=== PATIENT | female | born 1945 | race Caucasian/White ===

== ENCOUNTER → 2018-03-30 | Outpatient (CLI) | payer OTHER ==
[~2018-03-30] MED LIST: ACETAMINOPHEN325 M1 PO; AMANTADINE 100100 MG PO; AMBEREN; ASPIRIN EC81 M1 PO; BUDEPRION SR100 MG PO; BUPROPION XL150 MG PO; CALCIUM 600 +1 EAC5; CIPROFLOXACIN500 M1; CIPROFLOXACIN500 M1 PO; CLONAZEPAM; CLONAZEPAM PO; COZAAR 50 MG TA50 M2 PO; DESYREL50 MG; DESYREL50 MG PO; DIOVAN HCT 1601 EACH PO; DIOVAN40 MG; DITROPAN XL15 MG PO; FISH OIL 1,0001 EAC5; FLOMAX; FLUZONE 2045 MCG/011; FOSAMAX 70 MG T70 M1; GEODON40 MG; GEODON60 MG PO; HYDROCODON-ACE1 EAC7; KLONOPIN PO; KLOR CON; KLOR-CON 1010 MEQ; KLOR-CON 1010 MEQ PO; MEDROLDOSEPACK PO; METAMUCIL0.52 GM PO; MULTIVITAMINS PO; NEXIUM40 MG PO; OMEPRAZOLE40 MG PO; PERCOCET 5-3251 EACH PO; PNEUMOVAX25 MCG/0.5; POTASSIUM20; SELENIUM100 MCG PO; SIMVASTATIN40 MG PO; STOOL SOFTENER1 EAC2 PO; TOPAMAX; TOPAMAX 100 MG100 MG; TOPAMAX100 MG PO; TRAMADOL 50 MG50 MG; TRAMADOL 50 MG50 MG PO; TRAZODONE 150150 M1 PO; TRIAMTERENE PO; TRIAMTERENE-HC1 EAC1 PO; VESICARE10 M1 PO; VITAMIN C + RO500 MG; VITAMIN D1000 UNI1; VITAMIN D400 UNI1; WELLBUTRIN 100100 M1; ZIPRASIDONE HCL40 MG PO; ZYRTEC 10 MG TA10 M1 PO; ZYRTEC10 M2; ZYRTEC10 M2 PO; [UNRECOGNIZED DRUG - OTHER]
== END ==
LOC: M.RAD 09:56
DX: Z12.31 Encounter for screening mammogram for malignant neoplasm of breast (principal)

== ENCOUNTER → 2019-04-22 | Outpatient (CLI) | payer OTHER | LOC: M.RAD 08:35 | DX: Z12.31 Encounter for screening mammogram for malignant neoplasm of breast (principal) ==